=== PATIENT | male | born 1990 | race Caucasian/White ===

== ENCOUNTER 2024-09-30 09:53 | Day surgery (SDC) | payer OTHER ==
[2024-09-30] MEDS ORDERED: BUPIVACAINE 0.5% VIAL IJ ONE (09:54)
[2024-09-30] MEDS ORDERED: Depo-Medrol 40 MG/ML IM ONE (09:54)
[2024-09-30] MEDS ORDERED: propofoL IV ONE ×2 (12:09→12:13)
[2024-09-30] MEDS ORDERED: Lactated Ringers 1,000 ML IV ONE (12:20)
--- NOTE | 2024-09-30 15:14 | XRAY ---
Indication: Bilateral L4-S1 MBB. Intraoperative fluoroscopy provided for 14 seconds. Single digital spot image submitted for interpretation demonstrates posterior needle tips projecting over expected left and right L4-S1 nerve roots. Correlate with intraoperative findings/report.
--- NOTE | 2024-09-30 22:12 | XRAY ---
14 seconds of fluoroscopy was used in surgery for a bilateral L4-S1 MBB.
== END 2024-09-30 12:34 | disposition home or self-care (01) ==
LOC: SDC-PAIN 09:53
PROVIDERS: ATTEND Psychiatry & Neurology Pain Medicine
DX: M47.817 Spondylosis without myelopathy or radiculopathy, lumbosacral region (principal)

== ENCOUNTER 2024-11-24 10:15 | Day surgery (SDC) | payer OTHER ==
[2024-11-24] MEDS ORDERED: BUPIVACAINE 0.5% VIAL IJ ONE (10:16)
[2024-11-24] MEDS ORDERED: methylPREDNISolone acetate IM ONE (10:16)
[2024-11-24] MEDS ORDERED: LIDOCAINE HCL 1% 50 MG/5 ML VL IJ ONE (10:16)
[2024-11-24] MEDS ORDERED: propofoL IV ONE ×2 (11:36→11:53)
[2024-11-24] MEDS ORDERED: Lactated Ringers 1,000 ML IV ONE (12:41)
--- NOTE | 2024-11-24 12:53 | XRAY ---
Indication: Left L4-S1 RFA. Intraoperative fluoroscopy provided for 21 seconds. 3 digital spot images submitted for interpretation demonstrates posterior needle tips projecting over expected left L4-S1 nerve roots. Correlate with intraoperative findings/report.
--- NOTE | 2024-11-24 12:55 | XRAY ---
21 seconds of fluoroscopy was used in surgery for a left L4-S1 RFA.
== END 2024-11-24 12:27 | disposition home or self-care (01) ==
LOC: SDC-PAIN 10:15
PROVIDERS: ATTEND Psychiatry & Neurology Pain Medicine
DX: M47.817 Spondylosis without myelopathy or radiculopathy, lumbosacral region (principal)